=== PATIENT | female | born 1995 | race Caucasian/White ===

== ENCOUNTER 2019-01-24 02:53 | Emergency (ER) ==
[2019-01-24 03:06] VITALS: BP 128/87; TEMP 99.7; BMI 25.8
[2019-01-24] MEDS ORDERED: GI COCKTAIL PO STA (03:34)
--- NOTE | 2019-01-24 03:43 | ED.PDOC ---
General ED Provider: Dr. JASMIN HORTON Chief Complaint: Chest Pain Stated Complaint: Patient is a 23 year old female who comes to the ER with chest pain that radiates to the back for1 day. states she has had some decrease in frequency of her bowel movements. Time Seen by Physician: 03:15 Mode of Arrival: Walk-In Information Source: Patient Exam Limitations: No limitations Nursing and Triage Documentation Reviewed and Agree: Yes Does patient meet sepsis criteria?: No System Inflammatory Response Syndrome: Not Applicable Sepsis Protocol: For patient's 13 years and over: Temp is 96.8 and below OR 101 and greater Pulse >90 BPM Resp >20/minute Acutely Altered Mental Status Are patient's symptoms suggestive of a new infection, such as: -Pneumonia -Skin, Soft Tissue -Endocarditis -UTI -Bone, Joint Infection -Implantable Device -Acute Abdominal Infection -Wound Infection -Meningitis -Blood Stream Catheter Infection -Unknown Cardiovascular Complaint Exam - Chest Pain Complaint/Exam Onset: Gradual Symptoms Are: Still present Timing: Constant Initial Severity: Mild Current Severity: Moderate Location: Reports: Left anterior Pain Radiates: Reports: Back Character: Reports: Sharp Aggravating: Reports: Deep breaths Alleviating: Reports: None Associated Signs and Symptoms: Denies: Diaphoresis, Nausea, Vomiting, Fever, Palpitations, Cough, Hemoptysis, Back pain, Abdominal pain, Dizziness, Short of air, Calf pain, Calf swelling Related History: Denies: Similar episode, Current [place] Inhibitors, Current ARBs, Current Beta Susi, Current Ca Hoffman.Susi, Current Diuretic, Rx noncompliance Related Surgical History: Reports: None History of Healthcare-Acquired Pneumonia: Reports: No AMI/ACS Risk Factors: Reports: None TAD Risk Factors: Reports: None Pulmonary Embolism Risk Factors: Reports: None Prior Care for this Complaint: No Recent Stress Test: No Recent Echo/LV Function: No JVD Present: No Subcutaneous Emphysema Present: No Diminshed Breath Sounds: No Reproducible Chest Wall Pain: Yes Bilateral Pulses Present: No Unequal Pulses Noted: No If Risk Factors for AMI/ACS Consider: EKG, Cardiac Enzymes Trestle Builder Consulted: No Differential Diagnoses: Chest Wall Pain, GI Diseasae, Pulmonary Embolism Quality Indicators For Acute CA or Cardiac Chest Pain: EKG in 10min. Quality Indicator For Non-Traumatic Chest Pain/Syncope: EKG Performed Patient Advised to Stop Smoking: Yes Review of Systems - Review Of Systems Constitutional: Reports: No symptoms Eyes: Reports: No symptoms Ears, Nose, Mouth, Throat: Reports: No symptoms Respiratory: Reports: No symptoms Cardiac: Reports: Chest pain GI: Reports: Constipated : Reports: No symptoms Musculoskeletal: Reports: No symptoms Skin: Reports: No symptoms Neurological: Reports: Anxiety Endocrine: Reports: No symptoms Hematologic/Lymphatic: Reports: No symptoms All Other Systems: Reviewed and Negative Past Medical History - Past Medical History Previously Healthy: Yes Endocrine: Reports: None Cardiovascular: Reports: None Respiratory: Reports: Asthma Hematological: Reports: None Gastrointestinal: Reports: None Genitourinary: Reports: None Neuro/Psych: Reports: Migraine, Anxiety, Depression Musculoskeletal: Reports: None Cancer: Reports: None Last Menstrual Period: 01-05-19 - Surgical History General Surgical History: Reports: None - Family History Family History: Reports: None - Social History Smoking Status: Never smoker Hx Substance Use: No Alcohol Screening: Occasionally - Immunizations Tetanus Shot up to Date: Yes Physical Exam - Physical Exam Appearance: Ill-appearing Ill-appearing: Mild Pain Distress: Moderate Eyes: MISTI, EOMI, Conjunctiva clear ENT: Nose normal, Oropharynx normal Neck: Supple Respiratory: Airway patent, Breath sounds clear, Breath sounds equal, Respirations nonlabored Cardiovascular: RRR, Pulses normal, No rub, No murmur GI/: Soft, Tender (mild left to mid epigastric area ) Musculoskeletal: Normal strength, ROM intact, No edema, No calf tenderness Skin: Warm, Dry, Normal color Neurological: Sensation intact, Motor intact, Reflexes intact, Cranial nerves intact, Alert, Oriented Psychiatric: Anxious Interpretation - Radiology Interpretation Radiology Interpretation By: ED Physician Radiology Results: Negative Exam Interpreted: CXR - Sound Controller Rate: Normal Rhythm: Sinus Ectopy: None - EKG Interpretation Time of EKG #1: 03:25 Rate: Normal Rhythm: Sinus Ectopy: None Interpretation: Low voltage EKG Re-Evaluation - Re-Evaluation Time of Re-Evaluation: 04:50 Status: Improved Vital Signs Stable: Yes Pain Level: 0/10 Appearance: NAD Critical Care Note - Critical Care Note Total Time (mins): 0 Course - Course Hematology/Chemistry: 01/24/19 03:40 01/24/19 03:40 Orders, Labs, Meds: Lab Review 01/24/19 01/24/19 01/24/19 03:15 03:40 03:40 WBC 7.61 RBC 4.47 Hgb 13.5 Hct 38.5 MCV 86.1 MCH 30.2 MCHC 35.1 RDW Coeff of Geovanni 12.0 Plt Count 231 Immature Gran % (Auto) 0.1 Neut % (Auto) 59.2 Lymph % (Auto) 26.8 [place] % (Auto) 12.5 H Eos % (Auto) 1.1 Baso % (Auto) 0.3 Immature Gran # (Auto) 0.0 Neut # (Auto) 4.5 Lymph # (Auto) 2.0 [place] # (Auto) 1.0 Eos # (Auto) 0.1 Baso # (Auto) 0.0 D-Dimer (Manual) Sodium 138.4 Potassium 3.74 Chloride 106.3 Carbon Dioxide 22.0 Anion Gap 13.84 BUN 16.2 Creatinine 0.51 L Estimated GFR (MDRD) 149.00 BUN/Creatinine Ratio 31.76 Glucose 98.2 Calcium 9.74 Total Bilirubin 0.51 AST 24.8 ALT 16.9 Alkaline Phosphatase 55.4 Total Creatine Kinase 40.4 Troponin I < 0.012 Total Protein 7.11 Albumin 4.24 Globulin 2.87 Albumin/Globulin Ratio 1.47 Amylase 38.0 Lipase 107.5 Serum , Qual Urine Color Yellow Urine Clarity Clear Urine pH 6.0 Ur Specific [place] 1.025 Urine Protein Negative Urine Glucose (UA) Negative Urine Ketones Negative Urine Blood 1+ Urine Nitrite Negative Urine Bilirubin Negative Urine Urobilinogen 4.0 Ur Leukocyte Esterase Negative Urine Microscopic RBC 2-5 Ur Squamous Epith Cells 0-2 Urine Mucus Trace 01/24/19 01/24/19 03:40 03:40 WBC RBC Hgb Hct MCV MCH MCHC RDW Coeff of Geovanni Plt Count Immature Gran % (Auto) Neut % (Auto) Lymph % (Auto) [place] % (Auto) Eos % (Auto) Baso % (Auto) Immature Gran # (Auto) Neut # (Auto) Lymph # (Auto) [place] # (Auto) Eos # (Auto) Baso # (Auto) D-Dimer (Manual) 272.17 Sodium Potassium Chloride Carbon Dioxide Anion Gap BUN Creatinine Estimated GFR (MDRD) BUN/Creatinine Ratio Glucose Calcium Total Bilirubin AST ALT Alkaline Phosphatase Total Creatine Kinase Troponin I Total Protein Albumin Globulin Albumin/Globulin Ratio Amylase Lipase Serum , Qual Negative Urine Color Urine Clarity Urine pH Ur Specific [place] Urine Protein Urine Glucose (UA) Urine Ketones Urine Blood Urine Nitrite Urine Bilirubin Urine Urobilinogen Ur Leukocyte Esterase Urine Microscopic RBC Ur Squamous Epith Cells Urine Mucus Orders Category Date Time Status EKG-(ED ONLY) Stat CARDIO 01/24/19 03:35 Ordered ED IV/MEDIPORT/POWERPORT .ONCE EMERGENCY 01/24/19 03:57 Ordered AMYLASE Stat LAB 01/24/19 03:34 Ordered CBC W/ AUTO DIFF Stat LAB 01/24/19 03:34 Ordered COMPREHENSIVE METABOLIC PANEL Stat LAB 01/24/19 03:34 Ordered CREATINE KINASE Stat LAB 01/24/19 03:34 Ordered D-DIMER Stat LAB 01/24/19 Ordered HCG QUALITATIVE [SERUM ] Stat LAB 01/24/19 Ordered LIPASE Stat LAB 01/24/19 03:34 Ordered TROPONIN I Stat LAB 01/24/19 03:34 Ordered URINALYSIS C & S IF INDICATED Stat LAB 01/24/19 03:34 Uncollected 0.9 % Sodium Chloride [Saline Flush] MEDS 01/24/19 03:57 Ordered 1 syr IVF PRN PRN Ketorolac Tromethamine [Toradol] MEDS 01/24/19 03:54 Stat 30 mg IVP ONCE STA Mag-Al Plus//Lidocaine [Gi Cocktail] MEDS 01/24/19 03:34 Discontinued 30 ml PO ONCE STA CHEST, 2 VIEWS PA & LAT Stat RADS 01/24/19 04:52 Ordered Medications Generic Name Dose Route Start Last Admin Trade Name Freq PRN Reason Stop Dose Admin Sodium Chloride 1 syr 01/24/19 03:57 01/24/19 04:06 Saline Flush IVF 1 syr PRN PRN Administration To flush IV Discontinued Medications Generic Name Dose Route Start Last Admin Trade Name Freq PRN Reason Stop Dose Admin Al Hydroxide/Mg Hydroxide 30 ml 01/24/19 03:34 01/24/19 03:44 Gi Cocktail PO 01/24/19 03:35 30 ml ONCE STA Administration Ketorolac Tromethamine 30 mg 01/24/19 03:54 01/24/19 04:06 Toradol IVP 01/24/19 03:55 30 mg ONCE STA Administration Vital Signs: Temp Pulse Resp BP Pulse Ox 01/24/19 02:54 99.7 F H 92 H 18 128/87 99 RAJAN Risk Score Age >/= 65: No >/= 3 CAD Risk Factors: No Known CAD (Stenosis >/= 50%): No ASA Use in Past 7 Days: No Severe Angina (>/= 2 episodes in 24 hours): No EKG ST Changes >/= 0.5mm: No Postive Cardiac Marker: No RAJAN Total Score: 0 RAJAN Risk Score: Risk Score Odds of by 30D 0 0.1 (0.1-0.2) 1 0.3 (0.2-0.3) 2 0.4 (0.3-0.5) 3 0.7 (0.6-0.9) 4 1.2 (1.0-1.5) 5 2.2 (1.9-2.6) 6 3.0 (2.5-3.6) 7 4.8 (3.8-6.1) Departure - Departure Time of Disposition: 05:00 Disposition: HOME SELF-CARE Discharge Problem: Pleurisy without effusion, Acute chest wall pain Instructions: Pleurisy (ED), Chest Wall Pain (ED) Condition: Good Pt referred to PMD for follow-up: Yes IPMP verified?: No Additional Instructions: Take Medications as prescribed Follow up with PCP in 3 days Prescriptions: Hydrocodone Bit/Acetaminophen [[place] 5-325] 1 each PO Q6HR PRN #7 tablet PRN Reason: severe pain Ibuprofen [Motrin] 600 mg PO Q6H PRN #30 tablet PRN Reason: Analgesia Allergies/Adverse Reactions: Allergies No Known Allergies Allergy (Verified 01/24/19 03:05) Home Medications: Ambulatory Orders Albuterol Sulfate [Proventil Hfa] 2 inh IH Q4H PRN 01/24/19 Citalopram Hydrobromide [Citalopram HBr] 20 mg PO DAILY 01/24/19 Fluticasone Propionate 110 Mcg [Flovent Hfa 110 Mcg] 2 puff IH BID 01/24/19 Hydrocodone Bit/Acetaminophen [[place] 5-325] 1 each PO Q6HR PRN #7 tablet Ibuprofen [Motrin] 600 mg PO Q6H PRN #30 tablet 01/24/19 Disposition Discussed With: Patient, Family
[2019-01-24] MEDS ORDERED: TORADOL IVP STA (03:54)
--- NOTE | 2019-01-24 07:23 | DI ---
EXAM: Chest, 2 views. HISTORY: Chest pain COMPARISON: 11/26/2018 FINDING/IMPRESSION: Cardiomediastinal countours appear stable. There is no focal pulmonary consolid ation. No pleural effusion or pneumothorax. No acute cardiopulmonary process.
== END 2019-01-24 05:23 | disposition home or self-care (01) ==
LOC: ED 02:53 → MERGE 02:53 → ED 05:23
DX: R07.89 Other chest pain (principal); K59.00 Constipation, unspecified; F41.9 Anxiety disorder, unspecified; R09.1 Pleurisy
CPT/HCPCS: 36415; 80053; 81001; 82150; 82550; 83690; 84484; 84703; 85025; 85379; 93005; 93010; 96375; 99284